=== PATIENT | female | born 1975 | race Caucasian/White ===

== ENCOUNTER → 2017-08-15 | Outpatient (CLI) | payer OTHER | LOC: FIMAGING 09:51 | PROVIDERS: ATTEND Obstetrics & Gynecology | DX: O36.0110 Maternal care for anti-D [Rh] antibodies, first trimester, not applicable or unspecified (principal); O09.521 Supervision of elderly multigravida, first trimester; Z3A.12 12 weeks gestation of pregnancy ==

== ENCOUNTER → 2017-10-05 | Outpatient (CLI) | payer OTHER | LOC: FIMAGING 12:11 | PROVIDERS: ATTEND Obstetrics & Gynecology | DX: O09.522 Supervision of elderly multigravida, second trimester (principal); Z3A.19 19 weeks gestation of pregnancy ==

== ENCOUNTER → 2017-12-19 | Outpatient (CLI) | payer OTHER | LOC: FIMAGING 13:19 | PROVIDERS: ATTEND Obstetrics & Gynecology | DX: O09.523 Supervision of elderly multigravida, third trimester (principal); Z3A.30 30 weeks gestation of pregnancy ==